=== PATIENT | male | born 1955 | race American Indian/Alaskan Native ===

== ENCOUNTER 2019-01-09 10:38 | Outpatient (CLI) | payer OTHER ==
[2019-01-09 11:01] LABS: Hematocrit 42.6 % (35.5-45.6); Hemoglobin 14.7 gm/dl (11.8-15.2); Mean Corpuscular HGB Conc 35 % (32-34); Mean Corpuscular Volume 88 fl (84-94); Platelet Count 163 K/mm3 (140-440); Red Blood Count 4.86 M/mm3 (3.65-5.03); Red Cell Distribution Width 14.3 % (13.2-15.2)
[2019-01-09 11:16] LABS: Alanine Aminotransferase 17 units/L (7-56); Albumin 4.1 g/dL (3.9-5); BUN/Creatinine Ratio 14; Blood Urea Nitrogen 14 mg/dL (9-20); Calcium 8.8 mg/dL (8.4-10.2); Chol/HDL Ratio 3.24 %; HDL Cholesterol 58 mg/dL (40-59); Hemolysis Index 3; LDL Cholesterol,Direct 129 mg/dL (50-130)
[2019-01-09 11:19] LABS: Erythrocyte Sedimentation Rate 4 mm/Hr (0-20)
== END 2019-01-09 10:39 | disposition home or self-care (01) ==
LOC: LAB 10:38
PROVIDERS: ATTEND Specialist
DX: G45.9 Transient cerebral ischemic attack, unspecified (principal)
CPT/HCPCS: 36415; 80053; 80061; 85027; 85652

== ENCOUNTER 2019-03-09 10:29 | Outpatient (CLI) | payer OTHER | END 2019-03-09 10:30 | disposition home or self-care (01) | LOC: ECHO 10:29 | PROVIDERS: ATTEND Internal Medicine Cardiovascular Disease | DX: I34.0 Nonrheumatic mitral (valve) insufficiency (principal); G45.9 Transient cerebral ischemic attack, unspecified | CPT/HCPCS: 93306 ==